=== PATIENT | female | born 1975 | race Caucasian/White ===

== ENCOUNTER 2021-08-17 11:53 | Outpatient (CLI) | payer BC | END 2021-08-17 11:54 | disposition home or self-care (01) | LOC: CSHLAB 11:53 | PROVIDERS: ATTEND Obstetrics & Gynecology | DX: Z01.812 Encounter for preprocedural laboratory examination (principal); Z20.822 Contact with and (suspected) exposure to COVID-19; Z53.9 Procedure and treatment not carried out, unspecified reason | CPT/HCPCS: 84703; 85027; 86850; 86900; 86901; U0003; U0005 ==

== ENCOUNTER 2021-08-20 05:29 | Inpatient (IN) | payer BC ==
[2021-08-17 13:29] LABS: Hemoglobin 13.6 g/dL (12.0-15.5); Mean Corpuscular HGB CONC 33.3 g/dL (32.0-36.0); Mean Corpuscular Hemoglobin 30.6 pg (27.0-33.0); Mean Corpuscular Volume 91.9 fl (81.6-98.3); Mean Platelet Volume 10.6 fl (7.4-10.4); Platelet Count 257 10x3/uL (150-450); RBC Distribution Width 12.2 % (11.5-14.5); Red Blood Cell (RBC) Count 4.44 10x6/uL (3.90-5.03); White Blood Cell (WBC) Count 9.5 10x3/uL (3.5-10.5)
[2021-08-17 13:36] LABS: BHCG - Serum Negative (NEGATIVE); Pregs Control Background? CLEAR/WHITE (CLR/WHITE); Pregs Control Bar Appear? YES (CONTROL BAR)
[2021-08-17 22:50] LABS: SARS-CoV-2 PCR by NAA Not Detected (NotDetected)
[2021-08-18 13:43] VITALS: BMI 32.1
[2021-08-20] MEDS ORDERED: Midazolam HCl 2 mg/2 ml Vial ONE ×2 (06:33→07:02)
[2021-08-20] MEDS ORDERED: Lidocaine 1% MPF 2 ML VIAL ONE (06:33)
[2021-08-20] MEDS ORDERED: Scopolamine 1.5 mg/72 hour Patch ONE (06:42)
[2021-08-20] MEDS ORDERED: ceFAZolin 2 GM/DEX 5% 100 ML BAG ONE (06:47)
[2021-08-20] MEDS ORDERED: PROPOFOL 60 ML ONE (07:00)
[2021-08-20] MEDS ORDERED: Morphine PF 10 MG/10 ML VIAL ONE (07:01)
[2021-08-20] MEDS ORDERED: Lidocaine 1% w/Epinephrine 1:100K 30 ML VIAL ONE (07:27)
[2021-08-20] MEDS ORDERED: Glycopyrrolate 0.2 MG/ML 5 ML SYRINGE ONE ×2 (07:29→07:30)
[2021-08-20] MEDS ORDERED: PROPOFOL 20 ML ONE (08:05)
[2021-08-20] MEDS ORDERED: Ketorolac Tromethamine 30 MG/ML VIAL ONE (08:20)
[2021-08-20] MEDS ORDERED: Naloxone HCl 0.4 mg/ml Vial IVP PRN ×2 (08:31)
[2021-08-20] MEDS ORDERED: diphenhydrAMINE 50 MG/ML VIAL IVP PRN (08:31)
[2021-08-20] MEDS ORDERED: Naloxone HCl 0.4 mg/ml Vial IV PRN (08:31)
[2021-08-20] MEDS ORDERED: Promethazine HCl 25 MG SUPP PR PRN (08:31)
[2021-08-20] MEDS ORDERED: Hydrocerin (Eucerin) Cream 120 gm Jar TOP PRN (08:31)
[2021-08-20] MEDS ORDERED: Ondansetron PF 4 MG/2 ML Vial IVP PRN ×2 (08:31→10:15)
[2021-08-20] MEDS ORDERED: Promethazine HCl 25 MG/ML VIAL IM PRN ×2 (08:31→10:15)
[2021-08-20] MEDS ORDERED: Communication Order-Pharmacy FS SCH (08:45)
[2021-08-20] MEDS ORDERED: Estradiol 0.05mg/24 Hour Patch (Weekly) ONE (08:53)
[2021-08-20] MEDS ORDERED: Simethicone Chewable 80 MG TAB PO PRN (10:15)
[2021-08-20] MEDS ORDERED: diphenhydrAMINE 25 MG CAP PO PRN (10:15)
[2021-08-20] MEDS ORDERED: Acetaminophen 325 MG TAB PO PRN (10:15)
[2021-08-20] MEDS ORDERED: Dextrose 5%-Lactated Ringers 1,000 ML IV SCH (10:15)
[2021-08-20] MEDS ORDERED: Estradiol 0.05mg/24 Hour Patch (Weekly) TD SCH (10:15)
[2021-08-20] MEDS ORDERED: HYDROcodone/Acetaminophen 5/325 mg Tablet PO PRN ×4 (10:17→21:00)
[2021-08-20] MEDS: Ibuprofen 800 MG TAB PO SCH ×2 (14:04→22:01)
[2021-08-20] MEDS ORDERED: Atorvastatin Calcium 40 MG TAB PO SCH (21:00)
[2021-08-20] MEDS ORDERED: Docusate 100 MG CAP PO PRN (22:39)
[2021-08-21] MEDS ORDERED: Levothyroxine Sodium 100 MCG TAB PO SCH (06:00)
[2021-08-21] MEDS: Ibuprofen 800 MG TAB PO SCH ×2 (06:04→14:00)
[2021-08-21] MEDS ORDERED: Liothyronine Sodium 5 MCG TAB PO SCH (09:00)
[2021-08-21 12:07] LABS: Hemoglobin 11.2 g/dL (12.0-15.5)
[2021-08-21 15:47] VITALS: BP 123/69; TEMP 98.1
== END 2021-08-21 16:30 | disposition home or self-care (01) | DRG 743 ==
LOC: CSHSDC 05:29 → CSHPED 09:33
PROVIDERS: ADMIT Obstetrics & Gynecology; ATTEND Obstetrics & Gynecology
PROC: 0UT90ZZ Resection of Uterus, Open Approach (ICD-10-PCS; principal; 2021-08-20)
PROC: 0UT70ZZ Resection of Bilateral Fallopian Tubes, Open Approach (ICD-10-PCS; 2021-08-20)
PROC: 0UT20ZZ Resection of Bilateral Ovaries, Open Approach (ICD-10-PCS; 2021-08-20)
DX: D25.9 Leiomyoma of uterus, unspecified (principal); Z20.822 Contact with and (suspected) exposure to COVID-19; N80.9 Endometriosis, unspecified; N94.6 Dysmenorrhea, unspecified; N92.0 Excessive and frequent menstruation with regular cycle
CPT/HCPCS: 36415; 84703; 85014; 85018; 85027; 86850; 86900; 86901; 88307; J1885; J2250; J2274; J2704; U0003; U0005

== ENCOUNTER 2023-08-03 08:16 | Outpatient (CLI) | payer BC | END 2023-08-03 08:17 | disposition home or self-care (01) | LOC: CSHMAMMO 08:16 | PROVIDERS: ATTEND Obstetrics & Gynecology | DX: Z12.31 Encounter for screening mammogram for malignant neoplasm of breast (principal); Z98.82 Breast implant status | CPT/HCPCS: 77063; 77067 ==

== ENCOUNTER 2024-08-09 09:58 | Outpatient (CLI) | payer BC | END 2024-08-09 09:59 | disposition home or self-care (01) | LOC: CSHMAMMO 09:58 | PROVIDERS: ATTEND Obstetrics & Gynecology | DX: Z12.31 Encounter for screening mammogram for malignant neoplasm of breast (principal); Z98.82 Breast implant status | CPT/HCPCS: 77063; 77067 ==